=== PATIENT | male | born 1950 | race Caucasian/White ===

== ENCOUNTER 2017-12-29 13:38 | Emergency (ER) | payer OTHER ==
[~2017-12-29] VITALS: Ht 172.7 cm; Wt 90.7 kg
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
[2017-12-29] MEDS ORDERED: NAPROSYN500 M1 PO (15:39)
[2017-12-29] MEDS ORDERED: LIDODERM1 EACH TOP (15:39)
[2017-12-29] MEDS ORDERED: CYCLOBENZAPRINE10 M1 PO (15:39)
[2017-12-29 15:42] VITALS: BP 182/86
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
== END 2017-12-29 15:52 ==
LOC: ERH 13:38
DX: M54.2 Cervicalgia (principal); M54.9 Dorsalgia, unspecified; F17.210 Nicotine dependence, cigarettes, uncomplicated; F10.10 Alcohol abuse, uncomplicated; M19.90 Unspecified osteoarthritis, unspecified site